=== PATIENT | male | born 1960 | race African-American/Black ===

== ENCOUNTER → 2020-01-12 | Day surgery (SDC) | payer BC, OTHER ==
[~2020-01-12] MED LIST: ACETAMINOPHEN 1000 MG/100 ML 100 ML IV ONE; AMLODIPINE BESY10 MG PO; CEFAZOLIN SOD 1 GM/NS 50ML 100 ML IV ONE; DEXAMETHASONE SOD PHOS INJ 4 MG/ML VIAL ONE; FENTANYL CITRATE/PF 100MCG/2 ML INJ ONE; GATIFLOXACIN(OPTH) 5 ML LIQD ONE; LIDOCAINE HCL 1% LOCAL INJ 20 ML VIAL ONE; LIDOCAINE HCL 2% LOCAL INJ 5 ML SDV VIAL INJ ONE; LIPITOR20 MG PO; LOSARTAN PO; MIDAZOLAM HCL 2 MG/2 ML VIAL ONE; MUPIROCIN 2% OINT 22 GM TUBE ONE; ONDANSETRON HCL INJ 2MG/ML 2ML 2 MG/ML VIAL ONE; PROPOFOL IV EMULSION 10 MG/ML 20 ML VIAL ONE; SEVOFLURANE INHAL SOLN 250 ML PEN BTL ONE
[2020-01-12 12:20] VITALS: BP 141/87
--- NOTE | 2020-01-12 21:26 | Operative Report ---
DATE OF PROCEDURE: 01/12/2020 SURGEON: Kenna Griggs MD SERVICE: Urology. PREOPERATIVE DIAGNOSES: 1. A hard solid scrotal mass in the midline, the base of the scrotum. 2. Scrotal stage 3 left hydrocele. POSTOPERATIVE DIAGNOSES: 1. A hard solid scrotal mass in the midline, the base of the scrotum. 2. Scrotal stage 3 left hydrocele. OPERATIONS PERFORMED: 1. Removal of solid mass from the scrotum. 2. Excision and removal of scrotal cyst. 3. Repair of left hydrocele. SUPERMARKET MANAGER: None. ANESTHESIA: General. CLINICAL INDICATION NOTE: This is a 59-year-old patient, who was brought for exploration and removal of large scrotal mass about 4 cm in size, which appeared to be solid. He also had hydrocele in the scrotum. All these things will be repaired at the same time. Procedure was discussed with the patient. Potential benefits and complications discussed, explained, and accepted. DESCRIPTION OF PROCEDURE AND FINDINGS: After proper level of anesthesia was achieved, the patient placed in supine position, prepped and draped in sterile fashion. Transverse incision in the scrotum was made. The mass was excised and sent to pathology. The surface was not entered and no significant bleeding. Following this, cystic area in the scrotum was excised and sent separately to pathology. Following this, the left hydrocele was opened up and repaired. A 3-0 PDS sutures were used to . No significant bleeding was experienced. Therefore, drain was not left. Testicle was repositioned in the scrotum. The scrotum was closed in layer using a 3-0 running and interrupted sutures. The Tegaderm dressing was then applied and mesh underwear. The patient tolerated the procedure well, was transferred in satisfactory condition to recovery. Postop orders given. Kenna Griggs MD [place]/MODL /[id number]
== END | disposition home or self-care (01) ==
LOC: OR 08:45
PROVIDERS: ATTEND Urology
DX: S30.22XA Contusion of scrotum and testes, initial encounter (principal); N43.3 Hydrocele, unspecified; L72.9 Follicular cyst of the skin and subcutaneous tissue, unspecified; I10 Essential (primary) hypertension; X58.XXXA Exposure to other specified factors, initial encounter; Z01.810 Encounter for preprocedural cardiovascular examination; Z01.812 Encounter for preprocedural laboratory examination; Z11.59 Encounter for screening for other viral diseases
CPT/HCPCS: 11424; 11426; 55060; 88304; 88305; 93005; J0131; J0690; J1100; J2001 ×2; J2250; J2405; J2704; J3010; U0002